=== PATIENT | male | born 1975 | race Caucasian/White ===

== ENCOUNTER 2024-03-17 11:15 | Outpatient (CLI) | payer OTHER, SELFPAY | END 2024-03-17 11:16 | disposition home or self-care (01) | LOC: NFLDREF 03-19 10:52 | PROVIDERS: Visit Provider Family Medicine | DX: Z00.00 Encounter for general adult medical examination without abnormal findings (principal); Z12.5 Encounter for screening for malignant neoplasm of prostate; Z13.1 Encounter for screening for diabetes mellitus; Z13.6 Encounter for screening for cardiovascular disorders | CPT/HCPCS: 80061; 82947; G0103 ==

== ENCOUNTER 2024-04-15 08:04 | Day surgery (SDC) | payer OTHER, SELFPAY ==
[2024-04-15] VITALS (8 sets, daily range): BP systolic 117–139; BP diastolic 83–98; PULSE 46–81; RESP 14–16; TEMP 36.2–36.3; O2SAT 94–97; BMI 24.7
--- OUTSIDE RECORDS SUMMARY | 2024-04-15 08:07 | XMS_ITS | Encounter Summary ---
Author Organization [facility] Address [address] [place] [address] Care Team Providers Care Vacuum Cooker Operator Name Role Phone Self-Referral, Patient Primary Care Provider Encounter Details Date Type Department Care Team (Late st Contact Info) Description 08/13/2013 Orders Only [facility] [address] [place] [address] Ozzie Sandoval MD [address] [facility] [place] [address] MMT (medial meniscus tear) Social History Tobacco Use Types Packs/Day Years Used Date Smoking Tobacco: Never Assessed Sex and Gender Information Value Date Recorded Sex Assigned at Not on file Gender Identity Not on file Sexual Orientation Not on file documented as of this encounter Plan of Treatment Not on file documented as of this encounter Visit Diagnoses Diagnosis MMT (medial meniscus tear) Tear of medial cartilage or meniscus of knee, current documented in this encounter Care Teams Vacuum Cooker Operator Relationship Specialty Start Date End Date Self-Referral, Patient, MD [place] [place], [place] [id number] PCP - General 07/26/13 documented as of this encounter
--- OUTSIDE RECORDS SUMMARY | 2024-04-15 08:07 | XMS_ITS | Clinical Summary ---
[facility] Address [address] [place] [address] Care Team Providers Care Pneumatic Hoist Operator Name Role Phone Self-Referral, Patient MD Primary Care Provider Source Comments You are receiving this document as you are listed as the primary care provider,follow-up provider, or the patient has been referred to you for consultation.This is in compliance with the Medicare and[facility] EHR Incentive Program,which states Providers who transition their patient to another setting of careor provider of care or refers their patient to another provider of care shouldprovide summary care record for each transition of care or referral. [facility] [facility] Allergies No known active allergies Medications Medication Sig Dispensed Refills Start Date End Date Status oxyCODONE (ROXICODONE) 5 MG immediate release tablet 5 mg tab, take 1-2 tablets by mouth every 4 hours as needed for pain 20 Tablet 02/01/2021 Active Additional Information Patient not taking.Reported on 02/14/2021 hydrOXYzine pamoate (VISTARIL) 25 MG capsule Take 1 Capsule by mouth three times a day as needed for Itching. 30 Capsule 02/01/2021 Active Additional Information Patient not taking.Reported on 02/14/2021 Active Problems Problem Noted Date Diagnosed Date Allergic rhinitis 04/16/2003 Overview: Rhinitis Allergic NOS Immunizations Name Administration Dates Next Due DT Ped 06/14/1999 Social History Tobacco Use Types Packs/Day Years Used Date Smoking Tobacco: Never Smokeless Tobacco: Never Alcohol Use Standard Drinks/Week Comments Yes 2 (1 standard drink = 0.6 oz pur e alcohol) PHQ-2 Answer Date Recorded PHQ-2 Score 0 01/30/2021 Sex and Gender Information Value Date Recorded Sex Assigned at Not on file Gender Identity Not on file Sexual Orientation Not on file Last Filed Vital Signs Vital Sign Reading Time Taken Comments Blood Pressure 131/94 02/01/2021 1:00 PM CDT Pulse 75 02/01/2021 1:00 PM CDT Temperature 36.9 ??C (98.5 ??F) 02/01/2021 1:00 PM CD T Respiratory Rate 16 02/01/2021 1:00 PM CDT Oxygen Saturation 98% 02/01/2021 1:00 PM CDT Inhaled Oxygen Concentration - - Weight 85.7 kg (188 lb 15 oz) 02/01/2021 9:29 AM CDT Height 177.8 cm (5' 10) 02/01/2021 9:29 AM CDT Body Mass Index 27.11 02/01/2021 9:29 AM CDT Plan of Treatment Health Maintenance Due Date Last Done Comments Colon Cancer Screening Plan Due 1973 Hep C Screening (Preventive Services) 1973 PSA Screening Discussion 1973 HIV Screening (Preventive Services) 1989 Adult Preventive Visit 1991 HepB (1) 1992 Cholesterol 2008 DTaP/Tdap/Td (2 - Tdap) 06/14/2009 06/14/1999 Zoster/Shingles (1 of 2) 2023 COVID-19 Vaccine (2 - 2022-2 4 season) 2023 02/06/2021 Influenza (Season Ended) 2024 020, 08/28/2010, 08/29/2009 HepA Aged Out No longer eligi ble based on patient's age to complete this topic Hib Aged Out No longer eligi ble based on patient's age to complete this topic IPV (Polio) Aged Out No longer eligi ble based on patient's age to complete this topic MCV4 Aged Out No longer eligi ble based on patient's age to complete this topic Pneumococcal Aged Out No longer eligi ble based on patient's age to complete this topic Advance Directives * Full Code (Latest Code Status on File) Date Activated Date Inactivated Comments 02/01/2021 11:59 AM 02/01/2021 3:48 PM Care Teams Pneumatic Hoist Operator Relationship Specialty Start Date End Date Self-Referral, Patient[place] [address] PCP - General 07/26/13
--- OUTSIDE RECORDS SUMMARY | 2024-04-15 08:07 | XMS_ITS | Clinical Summary ---
Author Organization [facility] Address [place], [place] [address] Care Team Providers Care Inbound Sales Advisor Name Role Phone Pcp, No Primary Care Provider Unavailabl e Allergies No known active allergies Medications Medication Sig Dispensed Refills Start Date End Date Status acetaminophen (TYLENOL) 325 mg tabletIndications :Post-op pain Take 2 tablets by mouth every 4 hours if needed (mild pain). Max acetaminophen dose: 4000mg in 24 hrs. 80 tablet 04/28/2018 Active oxyCODONE (ROXICODONE) 5 mg immediate release tabletIndications :Post-op pain Take 1-2 tablets by mouth every 4 hours if needed for Pain (For moderate pain) Earliest Fill Date: 04/28/18 40 tablet 04/28/2018 Active sennosides-docusa te, 8.6-50 mg, (SENOKOT S) 8.6-50 mg tabletIndications :Post-op pain Take 1-4 tablets by mouth 2 times daily. 100 tablet 04/28/2018 Active WalkerIndications :Post-op pain Rolling Walker for home use. 1 Device 04/28/2018 Active Active Problems Problem Noted Date Diagnosed Date Spinal stenosis in cervical region 04/27/2018 Radiculopathy, cervical 04/27/2018 Social History Tobacco Use Types Packs/Day Years Used Date Smoking Tobacco: Never Assessed Sex and Gender Information Value Date Recorded Sex Assigned at Not on file Gender Identity Not on file Sexual Orientation Not on file Obstetrics History Last Filed Vital Signs Vital Sign Reading Time Taken Comments Blood Pressure 113/73 04/28/2018 7:20 AM CDT Pulse 87 04/28/2018 7:20 AM CDT Temperature 36.9 ??C (98.5 ??F) 04/28/2018 7:20 AM CD T Respiratory Rate 16 04/28/2018 7:20 AM CDT Oxygen Saturation 95% 04/28/2018 7:20 AM CDT Inhaled Oxygen Concentration - - Weight 83.9 kg (185 lb) 04/27/2018 2:24 PM CDT Height 177.8 cm (5' 10) 04/27/2018 2:24 PM CDT Body Mass Index 26.54 04/27/2018 2:24 PM CDT Plan of Treatment Not on file Medical Devices Implanted Type Area [employer] Mechan[employer] Device Identifier Shelf Expiration Date Model / Serial / Lot Disc Cerv 6x16mm [facility] - [id number] Implanted:Qty: 1 on 04/27/2018 by Jose Beauchamp MD at [facility] N/A: Spine [employer] Spine/Ortho 07/29/2025 [id number] / / [id number] Advance Directives * Full Code (Latest Code Status on File) Date Activated Date Inactivated Comments 04/27/2018 7:14 PM 04/28/2018 1:21 PM Care Teams Inbound Sales Advisor Relationship Specialty Start Date End Date Pcp, No . PCP - General 07/13/13
[2024-04-15] MEDS: LACTATED RINGERS 1000 ML 1,000 ML 100 ML IV (08:10)
[2024-04-15] MEDS: SODIUM CHLORIDE 0.9 % (FLUSH) 10 ML SYRINGE IVF (08:57)
--- NOTE | 2024-04-15 09:33 | P.GSOP_ITS ---
Operative Note Date of procedure: 04/15/24 Pre-op diagnosis: Right inguinal hernia Post-op diagnosis: Same Type of Procedure: Laparoscopic right inguinal hernia repair with mesh Indications: The patient is a 48-year-old male who presented to the clinic with a right inguinal hernia which has been present for several months. It does cause him discomfort. After discussion of options, he elected to proceed with repair. Procedure Description: After discussing the risks and benefits of the procedure, the patient signed informed consent.? The operative site was marked and the patient was brought to the operating room and placed on the operating table in supine position.? Care was taken to pad the patient's pressure points.?? The patient was then intubated by anesthesia.?? The operative site was then prepped and draped in the usual sterile fashion.? A time-out was then performed. A curvilinear incision was made below the umbilicus. Dissection was carried down to subcutaneous tissue until the anterior rectus fascia was encountered. This was incised off the midline on the right. Initially the incision appeared to be just medial to the rectus fibers as there was no muscle visible. Preperitoneal fat was noted. I closed this opening with 0 Vicryl and incised the fascia just to the right, where the rectus fibers were encountered. The rectus muscle fibers were then retracted exposing the posterior fascia. A port with a dissecting balloon was then introduced into the pre-preperitoneal space. This was inflated under direct vision. The balloon was deflated, removed, and a 10 mm working port was placed. The space was insufflated and a 10 mm 30-degree scope was then advanced into the space. Two 5 mm ports were placed in the midline under direct vision. Dissection began on the right side. Sridhar's ligament and the pubic bone were exposed medially. A direct hernia was noted. This was reduced. Following this, dissection was carried out laterally. Peritoneum was adherent to the cord structures. This was reduced. There was no cord lipoma noted. Once the hernia was completely reduced and the peritoneum had been dissected free appropriately inferiorly, a piece of Bard 3DMax mesh for the appropriate side was placed into the abdomen. This was positioned with the marker pointed medially. A Tacker was used to attach the mesh medially at Sridhar's ligament and 1 tack laterally with care to avoid the epigastric vessels and stay above the inguinal ligament. An additional tack was placed medially and anteriorly to hold the mesh in place superior medial to the direct hernia defect. Once this was completed the preperitoneal space was desufflated under direct vis ion to ensure the mesh laid flat. 10 mL of 0.5% Marcaine were instilled into the preperitoneal space through a port. The ports were removed. The fascia from the infraumbilical port was closed with 0 Vicryl, including the initial fascial opening medially. The skin incisions were closed with absorbable subcuticular suture. Sterile dressings were then applied. The scrotum was examined to ensure that both testicles were down. Instrument sponge and needle counts were correct at the end of the case. The patient was then woken and transported to the recovery area in stable condition. ? The patient tolerated the procedure well. Findings: Direct right inguinal hernia. Anesthesia: GETA Surgeon: Marisa Dyer MD Estimated blood loss (mL): 5 Condition: stable Disposition: PACU
--- NOTE | 2024-04-15 09:33 | W.PM.H&PU ---
History & Physical Update History & Physical Update H&P Reviewed and patient assessed: No changes noted
[2024-04-15] MEDS: CEFAZOLIN 1 GM inj IVP (09:40)
--- NOTE | 2024-04-15 09:49 | W.ANESCHARGE ---
Anesthesia Charges Start Date/Time Anesthesia Start Date: 04/15/24 Anesthesia Start Time: 09:27 Stop Date/Time Anesthesia Stop Date: 04/15/24 Anesthesia Stop Time: 10:52
[2024-04-15] MEDS: BUPIVACAINE 0.25% 30 ML INJECTION (10:33)
--- NOTE | 2024-04-15 10:55 | W.ANESCHARGE ---
Anesthesia Charges Start Date/Time Anesthesia Start Date: 04/15/24 Anesthesia Start Time: 09:27 Stop Date/Time Anesthesia Stop Date: 04/15/24 Anesthesia Stop Time: 10:52
[2024-04-15] MEDS: LACTATED RINGERS 1000 ML 1,000 ML 35 ML IV (11:07)
[2024-04-15] MEDS: HYDROCODONE-ACETAMIN 5-325 MG 1 TAB PO (12:09)
== END 2024-04-15 09:37 | disposition home or self-care (01) ==
PROVIDERS: PCP Family Medicine; Visit Provider Surgery
PROC: (CPT 49650; principal; 2024-04-15 09:30)
DX: K40.90 Unilateral inguinal hernia, without obstruction or gangrene, not specified as recurrent (principal)
CPT/HCPCS: 49650; 00860; A9270; C1781; J0665; J0690; J1100; J1885; J2250; J2405; J2704; J2710; J3010; J7120